=== PATIENT | female | born 1960 | race Caucasian/White ===

== ENCOUNTER → 2018-07-18 | Outpatient (CLI) | payer BC ==
--- NOTE | 2018-07-19 15:05 | MM ---
Reason for exam: screening (asymptomatic). Last mammogram was performed 3 years and 9 months ago. History: Patient is postmenopausal. Took estrogen for 7 years 4 months beginning at age 44. Took progesterone for 7 years 4 months beginning at age 44. Physical Findings: A clinical breast exam by your physician is recommended on an annual basis and results should be correlated with mammographic findings. MG Screening Mammo w CAD Bilateral CC and MLO view(s) were taken. Prior study comparison: October 13, 2014, bilateral MG screening mammo w CAD. January 28, 2013, bilateral digital screening mammo w/CAD. The breast tissue is heterogeneously dense. This may lower the sensitivity of mammography. No suspicious abnormality. No significant changes when compared with prior studies. ASSESSMENT: Negative, BI-RAD 1 RECOMMENDATION: Routine screening mammogram of both breasts in 1 year.
== END | disposition home or self-care (01) ==
LOC: RADMAMWWP 15:05
PROVIDERS: ATTEND Family Medicine
DX: Z12.31 Encounter for screening mammogram for malignant neoplasm of breast (principal)
CPT/HCPCS: 77067

== ENCOUNTER 2018-11-11 15:10 | Emergency (ER) | payer BC ==
[2018-11-11] MEDS ORDERED: KETOROLAC 30 MG/ML 1 ML VIAL IVP STA (16:18)
[2018-11-11] MEDS ORDERED: ONDANSETRON 4 MG/2 ML VIAL IM STA (16:27)
[2018-11-11] MEDS ORDERED: ONDANSETRON ODT 4 MG TAB PO STA (16:28)
--- NOTE | 2018-11-11 16:32 | ED ---
Female Urogenital HPI - General Chief complaint: Urogenital Stated complaint: Kidney Stones, Abd Pain Time Seen by Provider: 11/11/18 16:05 Source: patient Mode of arrival: ambulatory Limitations: no limitations - History of Present Illness Initial comments: Patient is a 58-year-old female presented to emergency department with right flank pain. 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 Patient reports normally she takes Flomax and is able to pass a kidney stone. Patient reports now she is having similar suprapubic pain that radiates to the right flank. Patient reports increased frequency, urgency and incomplete emptying but no dysuria, hematuria or vaginal discharge. patient denies any changes with the ileostomy bowel movements. Patient does report nausea and chills but no vomiting, fever. - Related Data Home Medications Medication Instructions Recorded Confirmed Etanercept [Enbrel Sureclick] 50 mg SQ MENARD 11/11/18 11/11/18 Tamsulosin [Flomax] 0.4 mg PO DAILY 11/11/18 11/11/18 traMADol HCL [Ultram] 1 - 2 tab PO Q6HR PRN 11/11/18 11/11/18 Previous Rx's Medication Instructions Recorded Hydrocodone/Acetaminophen [[place] 1 tab PO Q6HR PRN #10 tab 11/11/18 5-325] Allergies Allergy/AdvReac Type Severity Reaction Status Date / Time No Known Allergies Allergy Verified 11/11/18 16:11 Review of Systems ROS Statement: Those systems with pertinent positive or pertinent negative responses have been documented in the HPI. ROS Other: All systems not noted in ROS Statement are negative. Past Medical History Additional Past Medical History / Comment(s): HX: ULCERATIVE COLITIS. ILEOSTOMY History of Any Multi-Drug Resistant Organisms: None Reported Past Surgical History: Appendectomy, Bowel Resection, Cholecystectomy, Hysterectomy Additional Past Surgical History / Comment(s): LEFT NEPHROLITHOMY. LEFT LITHOSTRIPY. REPAIR LEFT HAND (REMOVAL GLASS). Past Anesthesia/Blood Transfusion Reactions: Postoperative Nausea & Vomiting (PONV) Past Psychological History: No Psychological Hx Reported Smoking Status: Never smoker Past Alcohol Use History: Rare Past Drug Use History: None Reported - Past Family History Father Family Medical History: Coronary Artery Disease (CAD) General Exam Limitations: no limitations General appearance: alert, in no apparent distress Head exam: Present: atraumatic, normocephalic, normal inspection Eye exam: Present: normal appearance, PERRL, EOMI Pupils: Present: normal accommodation ENT exam: Present: normal exam, mucous membranes moist Neck exam: Present: normal inspection Respiratory exam: Present: normal lung sounds bilaterally Cardiovascular Exam: Present: regular rate, normal rhythm, normal heart sounds GI/Abdominal exam: Present: soft, tenderness (Generalized suprapubic pain), normal bowel sounds. Absent: guarding, rebound, rigid, organomegaly Back exam: Present: CVA tenderness (R) Neurological exam: Present: alert, oriented X3 Psychiatric exam: Present: normal affect, normal mood Skin exam: Present: warm, intact, normal color Course Vital Signs 11/11/18 11/11/18 15:15 16:38 Temperature 99.9 F H Pulse Rate 77 75 Respiratory 16 18 Rate Blood Pressure 136/77 151/89 O2 Sat by Pulse 99 99 Oximetry Medical Decision Making - Medical Decision Making Patient is a 58-year-old male presenting to emergency Department with right flank pain. UA is positive for red blood cells and negative for leukocyte esterase and nitrates. CT of pulse and abdomen is suggestive of hydronephrosis in the right kidney and multiple renal calculi in bilateral ureters. Patient will be discharged with [place] for 2 days. Patient advised to follow up with urology. Patient advised to return to emergency department if symptoms worsen. Case discussed physician. - Lab Data Result diagrams: 11/11/18 16:35 Lab Results 11/11/18 11/11/18 11/11/18 Range/Units 16:16 16:16 16:35 Sodium 140 (137-145) mmol/L Potassium 4.2 (3.5-5.1) mmol/L Chloride 104 (98-107) mmol/L Carbon Dioxide 24 (22-30) mmol/L Anion Gap 12 mmol/L BUN 16 (7-17) mg/dL Creatinine 0.83 (0.52-1.04) mg/dL Est GFR (CKD-EPI)AfAm >90 (>60 ml/min/1.73 sqM) Est GFR (CKD-EPI)NonAf 79 (>60 ml/min/1.73 sqM) Glucose 104 H (74-99) mg/dL Calcium 9.7 (8.4-10.2) mg/dL Total Bilirubin 0.9 (0.2-1.3) mg/dL AST 25 (14-36) U/L ALT 27 (9-52) U/L Alkaline Phosphatase 73 (38-126) U/L Total Protein 7.5 (6.3-8.2) g/dL Albumin 4.7 (3.5-5.0) g/dL Urine Color Yellow Urine Appearance Clear (Clear) Urine pH 5.5 (5.0-8.0) Ur Specific [place] 1.022 (1.001-1.035) Urine Protein Trace H (Negative) Urine Glucose (UA) Negative (Negative) Urine Ketones 3+ H (Negative) Urine Blood Moderate H (Negative) Urine Nitrite Negative (Negative) Urine Bilirubin Negative (Negative) Urine Urobilinogen <2.0 (<2.0) mg/dL Ur Leukocyte Esterase Negative (Negative) Urine RBC >182 H (0-5) /hpf Urine WBC 6 H (0-5) /hpf Ur Squamous Epith Cells 9 H (0-4) /hpf Calcium Oxalate Crystal Occasional H (None) /hpf Hyaline Casts 3 H (0-2) /lpf Urine Mucus Occasional H (None) /hpf Urine HCG, Qual Not Detected (Not Detectd) Disposition Clinical Impression: Kidney stone Disposition: HOME SELF-CARE Condition: Stable Instructions (If sedation given, give patient instructions): Kidney Stones (ED) Additional Instructions: Please take prescribed medication as directed. Please follow up with urology. Please return to emergency department if symptoms worsen. Prescriptions: Hydrocodone/Acetaminophen [[place] 5-325] 1 tab PO Q6HR PRN #10 tab PRN Reason: Pain Is patient prescribed a controlled substance at d/c from ED?: Yes If prescribed controlled substance>3 days was MAPS reviewed?: Prescribed <3 Days Referrals: Juan Mills DO [Primary Care Provider] - 1-2 days Tyler Oliveira MD [STAFF PHYSICIAN] - 1-2 days Time of Disposition: 17:45
[2018-11-11 16:34] LABS: Appearance,Urine Clear (Clear); Bilirubin,Urine Negative (Negative); Blood,Urine Moderate (Negative); Calcium Oxalate Crystals,Urine Occasional /hpf; Color,Urine Yellow; Glucose,Urine (UA) Negative (Negative); Hyaline Casts,Urine 3 /lpf (0-2); Ketones,Urine 3+ (Negative); Leukocyte Esterase,Urine Negative (Negative); Mucus,Urine Occasional /hpf; Nitrite,Urine Negative (Negative); PH, Urine 5.5 (5.0-8.0); Protein,Urine Trace (Negative); RBC,Urine >182 /hpf (0-5); Specific Gravity,Urine 1.022 (1.001-1.035); Squamous Epithelial Cell,Urine 9 /hpf (0-4); Urobilinogen,Urine <2.0 mg/dL (<2.0); WBC,Urine 6 /hpf (0-5)
[2018-11-11 16:52] LABS: ALT 27 U/L (9-52); AST 25 U/L (14-36); Albumin 4.7 g/dL (3.5-5.0); Alkaline Phosphatase 73 U/L (38-126); Anion Gap 12 mmol/L; Blood Urea Nitrogen 16 mg/dL (7-17); Calcium 9.7 mg/dL (8.4-10.2); Carbon Dioxide 24 mmol/L (22-30); Chloride 104 mmol/L (98-107); Glucose 104 mg/dL (74-99); Potassium 4.2 mmol/L (3.5-5.1); Sodium 140 mmol/L (137-145); Total Bilirubin 0.9 mg/dL (0.2-1.3); Total Protein 7.5 g/dL (6.3-8.2)
--- NOTE | 2018-11-11 17:05 | CT ---
EXAMINATION TYPE: CT abdomen pelvis wo con DATE OF EXAM: 11/11/2018 COMPARISON: 11/28/2011 HISTORY: Right flank pain CT DLP: 707.3 mGycm Automated exposure control for dose reduction was used. TECHNIQUE: Helical acquisition of images was performed from the lung bases through the pelvis. FINDINGS: There is mild subsegmental atelectasis at the lung bases. Heart size is normal. There is no pericardi al effusion. There is no pleural effusion. Stomach appears normal. Liver spleen pancreas appear rhiannon l. Bile ducts are not dilated. There are clips from cholecystectomy. There are numerous calculi in the left kidney that measure up to 1.5 cm. There is moderate right-sided hydronephrosis and hydroureter. There is right-sided perinephric edema. There is a 5 mm calculus in the distal right ureter. Bladder is almost empty. There is no free fluid in the pelvis. There is no inguinal hernia. There is no evidence of a bowel obstruction. There is right lower quadra nt ileostomy. There is peristomal hernia that contains apparent distal ileum. There appears to be a r ight hemicolectomy. Correlation with surgical history recommended. There is normal alignment of the lumbar vertebra. I see no bony destructive process. There is some mi ld spondylotic changes in the lower lumbar spine. There is no mesenteric edema. There is no ascites. There is no sign of free air. There is right-sided perinephric edema. IMPRESSION: NUMEROUS NONOBSTRUCTING LEFT RENAL CALCULI ARE INCREASED IN SIZE COMPARED TO OLD EXAM. THERE IS OBSTRUCTING CALCULUS IN THE DISTAL RIGHT URETER WITH MODERATE RIGHT-SIDED HYDRONEPHROSIS AND HYDROURETER THAT IS A CHANGE COMPARED TO OLD EXAM. ILEOSTOMY WITH PARASTOMAL HERNIA UNCHANGED.
[2018-11-11 18:17] VITALS: BP 138/79; PULSE 88; RESP 16; TEMP 98.7
== END 2018-11-11 18:15 | disposition home or self-care (01) ==
LOC: EC 15:10
DX: N13.2 Hydronephrosis with renal and ureteral calculous obstruction (principal); K43.5 Parastomal hernia without obstruction or gangrene; Z93.2 Ileostomy status; Z79.899 Other long term (current) drug therapy; Z90.49 Acquired absence of other specified parts of digestive tract; Z90.89 Acquired absence of other organs; Z90.710 Acquired absence of both cervix and uterus
CPT/HCPCS: 36415; 80053; 81001; 81025; 74176; 99284; 96374; J1885

== ENCOUNTER → 2019-01-29 | Outpatient (CLI) | payer BC ==
--- NOTE | 2019-01-29 14:10 | XR ---
KUB HISTORY: Kidney stones Frontal KUB and [address] 11/11/2018 Multiple calcifications are present overlying the lower pole left kidney as noted on CT. Appearances of partial staghorn calculus with calcifications within lower pole infundibula and calyces, largest c alcification measures approximately 1 cm. There are calcifications in left paraspinal location superi mposed over the left sacral ala similar to prior exam, likely representing phleboliths. Surgical clip s are present in the left hemipelvis, right abdomen. There is an indeterminate calcification in the r ight hemipelvis measuring approximately 1 mm which is indeterminate, additional probable phleboliths. IMPRESSION: Left-sided nephrolithiasis. There are indeterminate pelvic calcifications.
== END | disposition home or self-care (01) ==
LOC: RADXRMAIN 11:07
PROVIDERS: ATTEND Urology
DX: N20.0 Calculus of kidney (principal)
CPT/HCPCS: 74018

== ENCOUNTER → 2023-09-13 | Outpatient (CLI) | payer BC ==
--- NOTE | 2023-09-13 13:38 | MM ---
Reason for Exam: Screening (asymptomatic). Last mammogram was performed 5 year(s) and 2 month(s) ago. Patient History: Menarche at age 14. First Full-Term at age 23. Left ovary removed at age 44. Right ovary removed at age 44. Hysterectomy at age 44. Postmenopausal. Estrogen, starting at age 44 for 7 years, 4 months. Progesterone, starting at age 44 for 7 years, 4 months. Risk Values: Michelle 5 year model risk: 1.4%. NCI Lifetime model risk: 6.2%. Prior Study Comparison: 01/28/2013 Bilateral Screening Mammogram, [facility]. 10/13/2014 Bilateral Screening Mammogram, [facility]. 07/18/2018 Bilateral Screening Mammogram, [facility]. Tissue Density: The breasts are almost entirely fatty. Findings: Analyzed By CAD. Right breast: There is no suspicious group of microcalcifications or new suspicious mass. Left breast: There is no suspicious group of microcalcifications or new suspicious mass. Overall Assessment: Negative, BI-RAD 1 Management: Screening Mammogram of both breasts in [address] [facility] will attempt to contact patient to return for supplemental views and ultrasound if indicated. Patient should continue monthly self-breast exams. A clinical breast exam by your physician is recommended on an annual basis. This exam should not preclude additional follow-up of suspicious palpable abnormalities. Note on Michelle scores and lifetime risk: 1. A Michelle score greater than 3% is considered moderate risk. If this is the case, consider specialist referral to assess eligibility for a risk reducing agent. 2. If overall lifetime risk for the development of breast cancer is 20% or higher, the patient may qualify for future screening with alternating mammogram and breast MRI. Electronically signed and approved by: Eligio Rosas DO
== END | disposition home or self-care (01) ==
LOC: RADMAMWWP 12:34
PROVIDERS: ATTEND Family Medicine
DX: Z12.31 Encounter for screening mammogram for malignant neoplasm of breast (principal); Z78.0 Asymptomatic menopausal state
CPT/HCPCS: 77067

== ENCOUNTER → 2023-09-13 | Outpatient (CLI) | payer BC ==
--- NOTE | 2023-09-13 13:10 | US ---
EXAMINATION TYPE: US venous doppler duplex LE RT DATE OF EXAM: 09/13/2023 12:56 PM COMPARISON: NONE CLINICAL INDICATION: Female, 63 years old with history of R22.40 Localized swelling, mass and lump, l ower limb; Edema and redness right lower leg SIDE PERFORMED: right TECHNIQUE: The lower extremity deep venous system is examined utilizing real time linear array sonog tomeka with graded compression, doppler sonography and color-flow sonography. VESSELS IMAGED: Common Femoral Vein Deep Femoral Vein Greater Saphenous Vein * Femoral Vein Popliteal Vein Small Saphenous Vein * Proximal Calf Veins (* superficial vessels) Right Leg: No evidence of DVT IMPRESSION: Grayscale, color doppler, spectral doppler imaging performed of the deep veins of the lo wer extremities. There is normal flow, compressibility, vascular waveforms.
== END | disposition home or self-care (01) ==
LOC: RADUSWWP 12:32
PROVIDERS: ATTEND Family Medicine
DX: R22.40 Localized swelling, mass and lump, unspecified lower limb (principal)